=== PATIENT | male | born 1980 | race African-American/Black ===

== ENCOUNTER → 2021-01-24 | Outpatient (CLI) | payer OTHER | LOC: MHCPAIN 09:55 | DX: M47.817 Spondylosis without myelopathy or radiculopathy, lumbosacral region (principal); M54.5 Low back pain; M53.3 Sacrococcygeal disorders, not elsewhere classified; G89.29 Other chronic pain | CPT/HCPCS: G0463 ==

== ENCOUNTER → 2021-01-30 | Outpatient (CLI) | payer OTHER | LOC: MHCPAIN 12:23 | DX: M47.817 Spondylosis without myelopathy or radiculopathy, lumbosacral region (principal); M54.5 Low back pain ==

== ENCOUNTER → 2021-02-09 | Outpatient (CLI) | payer OTHER | LOC: MHCPAIN 12:59 | DX: M47.817 Spondylosis without myelopathy or radiculopathy, lumbosacral region (principal); M54.5 Low back pain | CPT/HCPCS: G0463 ==

== ENCOUNTER → 2021-02-23 | Outpatient (CLI) | payer OTHER | LOC: MHCPAIN 11:43 | DX: M47.817 Spondylosis without myelopathy or radiculopathy, lumbosacral region (principal); M54.5 Low back pain; M53.3 Sacrococcygeal disorders, not elsewhere classified | CPT/HCPCS: G0463; J1100; J2250; J3010 ==

== ENCOUNTER → 2021-03-06 | Outpatient (CLI) | payer OTHER | LOC: MHCPAIN 11:40 | DX: M47.817 Spondylosis without myelopathy or radiculopathy, lumbosacral region (principal); M54.5 Low back pain; M53.3 Sacrococcygeal disorders, not elsewhere classified | CPT/HCPCS: J1100; J2250; J3010 ==

== ENCOUNTER → 2022-04-24 | Outpatient (CLI) | payer OTHER ==
[~2022-04-24] MED LIST: LIPITOR20 MG PO; LUNESTA3 MG PO; MASON NATURAL2000 IU PO; NEXIUM 40MG40 MG PO; PRINIVIL20 MG PO; TIAZAC120 MG PO
== END ==
LOC: MHCPAIN 09:55
DX: M47.897 Other spondylosis, lumbosacral region (principal); M53.3 Sacrococcygeal disorders, not elsewhere classified; M54.50 Low back pain, unspecified
CPT/HCPCS: G0463

== ENCOUNTER → 2022-05-03 | Outpatient (CLI) | payer OTHER | LOC: MHCPAIN 12:07 | DX: M47.817 Spondylosis without myelopathy or radiculopathy, lumbosacral region (principal); M54.50 Low back pain, unspecified; M53.3 Sacrococcygeal disorders, not elsewhere classified | CPT/HCPCS: J1100; J2250; J3010 ==

== ENCOUNTER 2022-05-04 05:27 | Day surgery (SDC) | payer OTHER ==
[~2022-05-04] VITALS: Ht 182.9 cm; Wt 104.1 kg
[2022-05-04] MEDS ORDERED: TIAZAC120 MG PO (05:44)
[2022-05-04] MEDS ORDERED: LIPITOR20 MG PO (05:44)
[2022-05-04] MEDS ORDERED: LUNESTA3 MG PO (05:45)
[2022-05-04] MEDS ORDERED: PRINIVIL20 MG PO (05:45)
[2022-05-04] MEDS ORDERED: NEXIUM 40MG40 MG PO (05:45)
[2022-05-04] MEDS ORDERED: MASON NATURAL2000 IU PO (05:46)
[2022-05-04 06:04] VITALS: BP 151/80; PULSE 91; TEMP 97.7
[2022-05-04 08:10] VITALS: BP 125/70; PULSE 88; TEMP 98.2
[2022-05-04 08:25] VITALS: BP 135/57; PULSE 81
[2022-05-04 08:40] VITALS: BP 129/65; PULSE 80
[2022-05-04 08:55] VITALS: BP 132/69; PULSE 72
[2022-05-04 09:10] VITALS: BP 124/70; PULSE 81
--- NOTE | 2022-05-04 10:07 | NUR ---
0810: Patient arrived back into [facility] [place]. Patient is drowsy but arousable. Vital signs stable on room air. Report received from JULIO CESAR Baxter and DENG Copeland. Patient requesting water and blueberry muffins. Patient denies nausea and pain. Call light left within reach. 0825: Vital signs stable on room air, alert and awake. Tolerating food and drink well. Denies pain or nausea at this time. 0910: Vital signs stable on room air, alert and awake. Tolerating food and drink well. Denies pain or nausea at this time. 0930: Patient continues to do well. States his ride can pick him up in 30 minutes. Patient denies pain or nausea. Patient up to restroom and able to void. 0945: Patient got dressed independently in room. Call light left within reach. 0950: Patient meets discharge criteria. IV removed without complications. Went through discharge instructions with patient. 1000: Escorted to emergency department entrance via wheelchair. Patient got into personal vehicle and left in the care of his friend, [place].
== END 2022-05-04 10:05 | disposition home or self-care (01) ==
LOC: SDCO 05:27
DX: M85.472 Solitary bone cyst, left ankle and foot (principal); G47.33 Obstructive sleep apnea (adult) (pediatric); Z79.899 Other long term (current) drug therapy
CPT/HCPCS: J0690; J2250; J2704; J3010; J7120